=== PATIENT | female | born 1970 | race Caucasian/White ===

== ENCOUNTER 2019-12-12 04:35 | Inpatient (IN) | payer BC ==
[2019-12-12 13:20] LABS: ALT 16 U/L (4-34); AST 33 U/L (14-36); African American GFR (CKD) >90 (>60 ml/min/1.73 sqM); Albumin 4.2 g/dL (3.5-5.0); Alkaline Phosphatase 97 U/L (38-126); Anion Gap 12 mmol/L; Blood Urea Nitrogen 11 mg/dL (7-17); Carbon Dioxide 17 mmol/L (22-30); Chloride 95 mmol/L (98-107); Glucose 67 mg/dL (74-99); Non-African American GFR(CKD) >90 (>60 ml/min/1.73 sqM); Potassium 4.7 mmol/L (3.5-5.1); Sodium 124 mmol/L (137-145); Total Bilirubin 1.8 mg/dL (0.2-1.3); Total Protein 7.2 g/dL (6.3-8.2)
[2019-12-12 13:37] LABS: Basophils % (A) 0 %; Eosinophils # (A) 0.1 k/uL (0-0.7); Eosinophils % (A) 1 %; HCT 39.2 % (34.0-46.0); HGB 14.1 gm/dL (11.4-16.0); Lymphocytes # (A) 1.5 k/uL (1.0-4.8); Lymphocytes % (A) 25 %; MCHC 36.1 g/dL (31.0-37.0); Mean Platelet Volume 7.7; Monocytes # (A) 0.5 k/uL (0-1.0); Monocytes % (A) 8 %; Neutrophils # (A) 3.5 k/uL (1.3-7.7); Neutrophils % (A) 61 %; Platelet Count 164 k/uL (150-450); RBC 4.56 m/uL (3.80-5.40); RDW 12.5 % (11.5-15.5); WBC 5.8 k/uL (3.8-10.6)
[2019-12-12] MEDS ORDERED: NALOXONE 0.4 MG/ML 1 ML VIAL IV PRN (18:50)
[2019-12-12] MEDS: SODIUM CHLORIDE 0.9% 1,000 ML IV SCH ×2 (18:56→19:39)
[2019-12-12 19:56] LABS: African American GFR (CKD) >90 (>60 ml/min/1.73 sqM); Anion Gap 13 mmol/L; Blood Urea Nitrogen 13 mg/dL (7-17); Calcium 8.4 mg/dL (8.4-10.2); Carbon Dioxide 15 mmol/L (22-30); Chloride 94 mmol/L (98-107); Glucose 92 mg/dL (74-99); Non-African American GFR(CKD) >90 (>60 ml/min/1.73 sqM); Potassium 5.1 mmol/L (3.5-5.1); Sodium 122 mmol/L (137-145)
--- NOTE | 2019-12-12 20:51 | P.HPIM ---
History of Present Illness H&P Date: 12/12/19 Chief Complaint: Lightheadedness and weakness Patient is a 49-year-old female with a known history of breast cancer status post mastectomy and chemotherapy currently on Arimidex Was initially went to her primary care physician with the complaints of being generalized weakness and lightheadedness. Patient was orthostatically positive and was sent to hospital due to dehydration and volume depletion. Patient was seen initially seen at [facility] and was found to have sodium level 120 on admission. Patient was started on IV hydration and repeat sodium level came back at 119. Patient was transferred to [facility] for further management. Patient otherwise denied any complaints of nausea vomiting or abdominal pain or diarrhea. No dysuria or hematuria. No fever no chills. No chest pain or shortness of breath. Patient says that she has been drinking 150 ounces of water every day. Patient is currently not on any psychiatric medications. Review of Systems Constitutional: Patient denies any fever or chills . generalized weakness no weight loss. Abdomen: Patient denied nausea vomiting and diarrhea and abdominal pain. Cardiovascular: Patient denies any chest pain or short of breath no palpitations. Respiratory: patient denied any cough is from production. No shortness of breath Neurologic: Patient denied any numbness or tingling headache. Musculoskeletal: Patient denies any complaints of joint swelling or deformity. Skin: Negative Psychiatric: Negative Endocrine: No heat or cold intolerance. No recent weight gain. Genitourinary: No dysuria or hematuria. All other 14 point ROS negative except the above Past Medical History - Past Family History Father Family Medical History: Hypertension, Myocardial Infarction ([place]) Mother Family Medical History: Hypertension Medications and Allergies Home Medications Medication Instructions Recorded Confirmed Type Anastrozole [Arimidex] 1 mg PO DAILY 12/12/19 12/12/19 History Cetirizine HCl [Zyrtec] 10 mg PO DAILY 12/12/19 12/12/19 History Levothyroxine Sodium [Levoxyl] 100 mcg PO DAILY 12/12/19 12/12/19 History Montelukast [Singulair] 10 mg PO DAILY 12/12/19 12/12/19 History valACYclovir HCL [Valtrex] 2,000 mg PO Q12H PRN 12/12/19 12/12/19 History Allergies Allergy/AdvReac Type Severity Reaction Status Date / Time Penicillins Allergy Rash/Hives Verified 12/12/19 12:42 pollen extracts Allergy Verified 12/12/19 12:42 Physical Exam PHYSICAL EXAMINATION: Patient is lying in the bed comfortably, no acute distress, awake alert and oriented.. HEENT: Normocephalic. Neck is supple. Pupils reactive. Nostrils clear. Oral cavity is moist. Ears reveal no drainage. Neck reveals no JVD, carotid bruits, or thyromegaly. CHEST EXAMINATION: Trachea is central. Symmetrical expansion. Lung yeboah clear to auscultation and percussion. CARDIAC: Normal S1, S2 with no gallops. No murmurs ABDOMEN: Soft. Bowel sounds normal. No organomegaly. No abdominal bruits. Extremities: reveal no edema. No clubbing or cyanosis Neurologically awake, alert, oriented x3 with well-coordinated movements. No focal deficits noted Skin: No rash or skin lesions. Psychiatric: Coperative. Nonsuicidal Musculoskeletal: No joint swelling or deformity. Normal range of motion. Results CBC & Chem 7: 12/12/19 12:25 12/12/19 19:31 Thrombosis Risk Factor Assmnt - DVT/VTE Prophylaxis DVT/VTE Prophylaxis: Pharmacologic Prophylaxis ordered Assessment and Plan Assessment: Hyponatremia likely due to excessive free water intake. Hypoosmolar hyponatremia Metabolic acidosis History of breast cancer status post mastectomy and currently Arimidex. Hypothyroidism DVT prophylaxis with heparin subcu Plan: Patient will be continued on normal saline and serum, urine osmolality, urine protein and creatinine levels were ordered. Nephrology consultation. TSH is within normal limits. Repeat sodium level. Further recommendations based on clinical course. Time with Patient: Greater than 30
--- NOTE | 2019-12-12 22:16 | XR ---
EXAMINATION TYPE: XR chest 1V portable DATE OF EXAM: 12/12/2019 COMPARISON: NONE HISTORY: Sepsis TECHNIQUE: Single view FINDINGS: Heart and mediastinum are normal. Lungs are clear. Diaphragm is normal. Bony thorax appears normal. IMPRESSION: Normal chest.
[2019-12-12] MEDS: ACETAMINOPHEN TAB 325 MG TAB PO PRN (23:00)
[2019-12-12] MEDS: HEPARIN SODIUM,PORCINE 5,000 UNIT/ML 1 ML VIAL SQ SCH (23:02)
[2019-12-12 23:08] LABS: Appearance,Urine Clear (Clear); Bilirubin,Urine Negative (Negative); Blood,Urine Negative (Negative); Color,Urine Yellow; Glucose,Urine (UA) Negative (Negative); Ketones,Urine 2+ (Negative); Leukocyte Esterase,Urine Small (Negative); Mucus,Urine Rare /hpf; Nitrite,Urine Negative (Negative); Protein,Urine Negative (Negative); RBC,Urine 1 /hpf (0-5); Specific Gravity,Urine 1.014 (1.001-1.035); Urobilinogen,Urine <2.0 mg/dL (<2.0); WBC,Urine 7 /hpf (0-5)
[2019-12-12 23:16] LABS: Creatinine,Urine Random 69.3 mg/dL
[2019-12-13 05:10] LABS: Basophils # (A) 0.1 k/uL (0-0.2); Basophils % (A) 1 %; Eosinophils # (A) 0.1 k/uL (0-0.7); Eosinophils % (A) 1 %; HCT 40.6 % (34.0-46.0); HGB 13.6 gm/dL (11.4-16.0); Lymphocytes % (A) 33 %; MCHC 33.5 g/dL (31.0-37.0); MCV 86.8 fL (80.0-100.0); Mean Platelet Volume 6.8; Monocytes # (A) 0.4 k/uL (0-1.0); Monocytes % (A) 7 %; Neutrophils # (A) 3.3 k/uL (1.3-7.7); Neutrophils % (A) 54 %; Platelet Count 172 k/uL (150-450); RBC 4.67 m/uL (3.80-5.40); RDW 12.5 % (11.5-15.5); WBC 6.1 k/uL (3.8-10.6)
[2019-12-13 05:32] LABS: African American GFR (CKD) >90 (>60 ml/min/1.73 sqM); Anion Gap 10 mmol/L; Blood Urea Nitrogen 12 mg/dL (7-17); Calcium 8.8 mg/dL (8.4-10.2); Carbon Dioxide 17 mmol/L (22-30); Chloride 93 mmol/L (98-107); Glucose 82 mg/dL (74-99); Non-African American GFR(CKD) >90 (>60 ml/min/1.73 sqM); Potassium 4.9 mmol/L (3.5-5.1); Sodium 120 mmol/L (137-145)
[2019-12-13] MEDS: SODIUM CHLORIDE TAB 1 GM TAB PO SCH ×3 (06:49→20:29)
[2019-12-13] MEDS: LEVOTHYROXINE 100 MCG TAB PO SCH (06:49)
[2019-12-13] MEDS: PANTOPRAZOLE 40 MG TABLET PO SCH (07:03)
[2019-12-13] MEDS: MONTELUKAST 10 MG TAB PO SCH (09:20)
[2019-12-13] MEDS: ACETAMINOPHEN TAB 325 MG TAB PO PRN ×2 (09:20→19:29)
[2019-12-13] MEDS: HEPARIN SODIUM,PORCINE 5,000 UNIT/ML 1 ML VIAL SQ SCH ×3 (09:20→23:58)
[2019-12-13] MEDS: LORATADINE 10 MG TAB PO SCH (09:20)
[2019-12-13] MEDS: ANASTROZOLE 1 MG TAB PO SCH (11:50)
[2019-12-13 15:27] LABS: Sodium 121 mmol/L (137-145)
--- NOTE | 2019-12-13 18:23 | CONS ---
CONSULTATION REASON FOR CONSULT: Hyponatremia. HISTORY OF PRESENT ILLNESS: Patient is a 49-year-old female with a history of breast cancer about 12 years ago, status post bilateral mastectomy. The patient presented to the hospital with complaints of dizziness, weakness and low blood pressure. The patient states that she has had low blood pressure for some time and is aware of the times when it really decreases. She has had multiple readings of 80 mmHg systolic. The patient has had increased intake of salty foods. She goes through 3 jars of pickles over a week's time and has had a lot of salt cravings. The patient has, however, never been admitted before with hypotension or hyponatremia. She denies any prior history of hyponatremia. The patient initially went to [facility] where she was noted to have a low sodium and started on normal saline. Her serum sodium worsened on saline and therefore she was transferred to [place]. It dropped from 120 on initial admission to 119. The patient states that she has been drinking about 150 ounces of water every day and she was under the impression that increasing the water intake would help her blood pressure. She did state that she has increased her fluid intake over the past 4-5 months and did not have any labs done prior to this admission. The patient was not started on any new medications recently. She does have a history of hyperthyroidism status post radioactive iodine. Currently maintained on Levoxyl. No history of other connective tissue diseases or pigmentation issues or other malignancies. PAST MEDICAL HISTORY: Hyperthyroidism status post radioactive iodine, currently maintained on Synthroid. The patient has history of hypotension. HOME MEDICATIONS: Include Arimidex, Zyrtec, Levoxyl, Singulair, Valtrex. ALLERGIES: PENICILLIN causes rash and hives. POLLEN EXTRACT caused allergies. REVIEW OF SYSTEMS: As per HPI. Other systems negative. PHYSICAL EXAMINATION: Patient is comfortable, awake, alert, oriented x3, not in any acute distress. Blood pressure is 102/69. She had a T-max of 101.7, heart rate 99 per minute, patient is afebrile. Examination of the heart S1, S2. Examination of the lungs, bilateral breath sounds are heard. Abdomen is soft, nontender. Examination of lower extremities shows no significant edema. TRANSACTION MANAGER exam is grossly intact. LABS: Show sodium 120, potassium 4.9, chloride 93, CO2 17, BUN 10, serum creatinine 0.64. UA shows 2+ ketones, otherwise fairly negative with no blood or protein. Urine osmolality was 639 and random urine sodium was 183. ASSESSMENT: 1. Hyponatremia with low blood pressure but elevated urine osmolality and worsening of hyponatremia with normal saline which is suggestive off underlying SIADH. Clinically patient appears to be hypovolemic, however, the fact that she worsened with normal saline points towards SIADH, particularly with elevated urine osmolality and urine sodium. I will start her on sodium chloride tabs and patient is advised to restrict free water. Given the chronic hypotension prior to admission, I will check for random cortisol level as well and a TSH level. 2. Fever. Check urine cultures. The UA is not suggestive of a urinary tract infection. 3. Metabolic acidosis, nonanion gap, possibly related to the IV fluids in the form of sodium chloride. No ongoing diarrhea. 4. History of hyperthyroidism status post radioactive iodine. Currently maintained on Levoxyl. 5. History of breast cancer about 12 years ago, status post bilateral mastectomies with breast implants. PLAN: DC normal saline. Maintain patient on sodium chloride tabs. Check random cortisol level and TSH level. Repeat sodium in about 4 hours. Add oral sodium bicarb as well. Restrict plain water free water. Thank you for this consultation. Will continue to follow the patient with you during her hospitalization. MMODL / IJN: [id number] /
[2019-12-13] MEDS: SODIUM BICARBONATE TAB 650 MG TAB PO SCH (20:29)
[2019-12-13] MEDS: IBUPROFEN 400 MG TAB PO PRN (21:10)
[2019-12-14] MEDS: LEVOTHYROXINE 100 MCG TAB PO SCH (06:19)
[2019-12-14] MEDS: PANTOPRAZOLE 40 MG TABLET PO SCH (06:19)
[2019-12-14 07:26] LABS: African American GFR (CKD) >90 (>60 ml/min/1.73 sqM); Anion Gap 14 mmol/L; Blood Urea Nitrogen 13 mg/dL (7-17); Calcium 8.9 mg/dL (8.4-10.2); Carbon Dioxide 17 mmol/L (22-30); Chloride 93 mmol/L (98-107); Glucose 71 mg/dL (74-99); Non-African American GFR(CKD) >90 (>60 ml/min/1.73 sqM); Potassium 4.6 mmol/L (3.5-5.1); Sodium 124 mmol/L (137-145)
[2019-12-14] MEDS: ACETAMINOPHEN TAB 325 MG TAB PO PRN ×2 (08:43→18:55)
[2019-12-14] MEDS: ANASTROZOLE 1 MG TAB PO SCH (08:43)
[2019-12-14] MEDS: HEPARIN SODIUM,PORCINE 5,000 UNIT/ML 1 ML VIAL SQ SCH ×2 (08:43→15:21)
[2019-12-14] MEDS: SODIUM BICARBONATE TAB 650 MG TAB PO SCH ×2 (08:43→20:22)
[2019-12-14] MEDS: MONTELUKAST 10 MG TAB PO SCH (08:43)
[2019-12-14] MEDS: LORATADINE 10 MG TAB PO SCH (08:43)
[2019-12-14] MEDS: SODIUM CHLORIDE TAB 1 GM TAB PO SCH ×3 (08:43→20:23)
[2019-12-14] MEDS: ONDANSETRON 4 MG/2 ML VIAL IVP PRN ×3 (08:52→20:23)
--- NOTE | 2019-12-14 12:10 | PN ---
PROGRESS NOTE Patient is seen for followup for hyponatremia, hypotension, volume depletion. The patient is maintained on sodium chloride tabs. Her serum sodium has improved to 124 this morning. I did check a cortisol level and it was noted to be low at 4, and patient's clinical picture is suggestive of underlying adrenal insufficiency. I will add a Cortrosyn stimulation test to confirm and then patient can be started on steroids. She does see an soft iron inspector for hypothyroidism and she can follow up with Dr. Laura for the adrenals as well. Overall, patient states she is feeling better. PHYSICAL EXAMINATION: Blood pressure is 81/55, heart rate 106 per minute, she has a temp of 100 degrees Fahrenheit. Examination of the heart S1, S2. Examination of the lungs, decreased breath sounds at bases. Abdomen is soft, nontender. Examination of lower extremities shows no evidence of edema. NEPHROLOGY NURSE exam grossly intact. LAB: Show sodium 124, potassium 4.6, chloride 93, CO2 17, BUN 13, serum creatinine 0.65. ASSESSMENT: 1. Hyponatremia with elevated urine osmolality and elevated urine sodium with serum sodium worsening with normal saline, which is not clearly suggestive of hypovolemic hyponatremia, but rather SIADH. However, the patient's cortisol level is low and clinical picture with ongoing hypotension, hyponatremia and acidosis which has been chronic and is cortisol level of 4 to suggest adrenal insufficiency. I will order a Cortrosyn stimulation test. Continue with the sodium chloride tabs for now. 2. Metabolic acidosis non gap. Maintained on oral sodium bicarb. 3. History of hyperthyroidism status post radioactive iodine, maintained on Levoxyl. 4. History of breast cancer about 12 years ago, status post bilateral mastectomies with breast implants. PLAN: Continue sodium chloride tabs. Check Cortrosyn stimulation test and patient should follow up with Endocrinology as outpatient. We will start her on steroids if her a stimulation test shows evidence of adrenal insufficiency. MMODL / IJN: [id number] /
[2019-12-14] MEDS ORDERED: COSYNTROPIN 0.25 MG VIAL IVP ONE (15:45)
[2019-12-14] MEDS: IBUPROFEN 400 MG TAB PO PRN (20:22)
[2019-12-14] MEDS ORDERED: MELATONIN 3 MG TABLET PO PRN (21:05)
[2019-12-15] MEDS: HEPARIN SODIUM,PORCINE 5,000 UNIT/ML 1 ML VIAL SQ SCH ×4 (00:27→23:01)
--- NOTE | 2019-12-15 01:56 | P.PN ---
Subjective Progress Note Date: 12/13/19 Principal diagnosis: Hyponatremia Patient is a 49-year-old female with a known history of breast cancer status post mastectomy and chemotherapy currently on Arimidex Was initially went to her primary care physician with the complaints of being generalized weakness and lightheadedness. Patient was orthostatically positive and was sent to hospital due to dehydration and volume depletion. Patient was seen initially seen at [facility] and was found to have sodium level 120 on admission. Patient was started on IV hydration and repeat sodium level came back at 119. Patient was transferred to [facility] for further management. Patient otherwise denied any complaints of nausea vomiting or abdominal pain or diarrhea. No dysuria or hematuria. No fever no chills. No chest pain or shortness of breath. Patient says that she has been drinking 150 ounces of water every day. Patient is currently not on any psychiatric medications. 12/13/2019 Patient is currently lying in the bed comfortably. No complaints of weakness or fatigue today. Sodium level did improve to 120. Serum vascularity 249. Urine electrolytes reviewed and possible SIADH was suspected. TSH within normal limits. Cortisol level was ordered. Nephrology is following. No complaints of chest pain or shortness of breath. No fever no chills. Patient is currently being continued on fluid restriction and follow-up sodium level tomorrow. Current medications reviewed. Objective - Vital Signs Vital signs: Vital Signs Temp 101.7 F H 12/13/19 08:57 Pulse 99 12/13/19 08:57 Resp 18 12/13/19 08:57 BP 102/69 12/13/19 08:57 Pulse Ox 98 12/13/19 08:57 Intake & Output 12/12/19 12/13/19 12/13/19 18:59 06:59 18:59 Intake Total 75 125 Output Total 400 500 300 Balance -325 -375 -300 Weight 62.2 kg 62.1 kg Intake: Intake, IV Titration 75 125 Amount Sodium Chloride 0.9% 1, 75 75 000 ml @ 75 mls/hr IV . [id number] DASHAWN Rx#:[id number] cefTRIAXone 1 gm In 50 Sodium Chloride 0.9% 50 ml @ 100 mls/hr IVPB Q24H DASHAWN Rx#:[id number] Output: Urine 400 500 300 Other: Voiding Method Toilet Toilet - Exam PHYSICAL EXAMINATION: Patient is lying in the bed comfortably, no acute distress, awake alert and oriented.. HEENT: Normocephalic. Neck is supple. Pupils reactive. Nostrils clear. Oral cavity is moist. Ears reveal no drainage. Neck reveals no JVD, carotid bruits, or thyromegaly. CHEST EXAMINATION: Trachea is central. Symmetrical expansion. Lung yeboah clear to auscultation and percussion. CARDIAC: Normal S1, S2 with no gallops. No murmurs ABDOMEN: Soft. Bowel sounds normal. No organomegaly. No abdominal bruits. Extremities: reveal no edema. No clubbing or cyanosis Neurologically awake, alert, oriented x3 with well-coordinated movements. No focal deficits noted Skin: No rash or skin lesions. Psychiatric: Coperative. Nonsuicidal Musculoskeletal: No joint swelling or deformity. Normal range of motion. - Labs CBC & Chem 7: 12/13/19 04:58 12/14/19 06:30 Labs: Abnormal Lab Results - Last 24 Hours (Table) 12/12/19 12/12/19 12/12/19 Range/Units 12:25 19:31 22:45 Sodium 124 L 122 L (137-145) mmol/L Chloride 95 L 94 L (98-107) mmol/L Carbon Dioxide 17 L 15 L (22-30) mmol/L Glucose 67 L (74-99) mg/dL Osmolality (280-301) mosm/kg Total Bilirubin 1.8 H (0.2-1.3) mg/dL Urine Ketones 2+ H (Negative) Ur Leukocyte Esterase Small H (Negative) Urine WBC 7 H (0-5) /hpf Urine Mucus Rare H (None) /hpf 12/13/19 Range/Units 04:58 Sodium 120 L (137-145) mmol/L Chloride 93 L (98-107) mmol/L Carbon Dioxide 17 L (22-30) mmol/L Glucose (74-99) mg/dL Osmolality 249 L* (280-301) mosm/kg Total Bilirubin (0.2-1.3) mg/dL Urine Ketones (Negative) Ur Leukocyte Esterase (Negative) Urine WBC (0-5) /hpf Urine Mucus (None) /hpf Assessment and Plan Assessment: Hyponatremia likely due to excessive free water intake.Possible SIADH. Hypoosmolar hyponatremia Metabolic acidosis History of breast cancer status post mastectomy and currently Arimidex. Hypothyroidism DVT prophylaxis with heparin subcu Plan: Patient will be continued on normal saline and serum, urine osmolality, urine protein and creatinine levels reviewed. Nephrology is folowing. TSH is within normal limits. Further recommendations based on clinical course. Time with Patient: Greater than 30
--- NOTE | 2019-12-15 02:03 | P.PN ---
Subjective Progress Note Date: 12/14/19 Principal diagnosis: Hyponatremia Patient is a 49-year-old female with a known history of breast cancer status post mastectomy and chemotherapy currently on Arimidex Was initially went to her primary care physician with the complaints of being generalized weakness and lightheadedness. Patient was orthostatically positive and was sent to hospital due to dehydration and volume depletion. Patient was seen initially seen at [facility] and was found to have sodium level 120 on admission. Patient was started on IV hydration and repeat sodium level came back at 119. Patient was transferred to [facility] for further management. Patient otherwise denied any complaints of nausea vomiting or abdominal pain or diarrhea. No dysuria or hematuria. No fever no chills. No chest pain or shortness of breath. Patient says that she has been drinking 150 ounces of water every day. Patient is currently not on any psychiatric medications. 12/13/2019 Patient is currently lying in the bed comfortably. No complaints of weakness or fatigue today. Sodium level did improve to 120. Serum vascularity 249. Urine electrolytes reviewed and possible SIADH was suspected. TSH within normal limits. Cortisol level was ordered. Nephrology is following. No complaints of chest pain or shortness of breath. No fever no chills. Patient is currently being continued on fluid restriction and follow-up sodium level tomorrow. 12/14/2019 Patient denied any complaints of chest pain or shortness of. Generalized weakness and fatigue is much improved. Sodium level improved to 124 with fluid restriction. Cortisol level is 4. Nephrology is following and ordered cosyntropin test to rule out adrenal insufficiency. Otherwise patient is tolerating oral diet. No nausea vomiting or diarrhea or abdominal pain. Current medications reviewed. Objective - Vital Signs Vital signs: Vital Signs Temp 101.8 F H 12/14/19 19:45 Pulse 108 H 12/14/19 19:45 Resp 18 12/14/19 19:45 BP 97/63 12/14/19 19:45 Pulse Ox 98 12/14/19 19:45 Intake & Output 12/14/19 12/14/19 12/15/19 06:59 18:59 06:59 Intake Total 797 Output Total 525 Balance 272 Weight 59.3 kg Intake: Oral 797 Output: Urine 525 Other: Voiding Method Toilet Toilet - Exam PHYSICAL EXAMINATION: Patient is lying in the bed comfortably, no acute distress, awake alert and oriented.. HEENT: Normocephalic. Neck is supple. Pupils reactive. Nostrils clear. Oral cavity is moist. Ears reveal no drainage. Neck reveals no JVD, carotid bruits, or thyromegaly. CHEST EXAMINATION: Trachea is central. Symmetrical expansion. Lung yeboah clear to auscultation and percussion. CARDIAC: Normal S1, S2 with no gallops. No murmurs ABDOMEN: Soft. Bowel sounds normal. No organomegaly. No abdominal bruits. Extremities: reveal no edema. No clubbing or cyanosis Neurologically awake, alert, oriented x3 with well-coordinated movements. No focal deficits noted Skin: No rash or skin lesions. Psychiatric: Coperative. Nonsuicidal Musculoskeletal: No joint swelling or deformity. Normal range of motion. - Labs CBC & Chem 7: 12/13/19 04:58 12/14/19 06:30 Labs: Abnormal Lab Results - Last 24 Hours (Table) 12/14/19 12/14/19 Range/Units 06:30 10:35 Sodium 124 L (137-145) mmol/L Chloride 93 L (98-107) mmol/L Carbon Dioxide 17 L (22-30) mmol/L Glucose 71 L (74-99) mg/dL Plasma Lactic Acid Heladio 0.6 L (0.7-2.0) mmol/L Microbiology - Last 24 Hours (Table) 12/12/19 22:45 Urine Culture - Final Urine,Clean Catch 12/12/19 22:35 Blood Culture - Preliminary Blood No Growth after 24 hours 12/12/19 22:31 Blood Culture - Preliminary Blood No Growth after 24 hours Assessment and Plan Assessment: Hyponatremia likely due to excessive free water intake.Possible SIADH. r/o Adrenal insufficiency. Hypoosmolar hyponatremia Metabolic acidosis History of breast cancer status post mastectomy and currently Arimidex. Hypothyroidism DVT prophylaxis with heparin subcu Plan: Patient will be continued on normal saline and serum, urine osmolality, urine protein and creatinine levels reviewed. Nephrology is folowing. TSH is within normal limits. Further recommendations based on clinical course.
[2019-12-15] MEDS: LEVOTHYROXINE 100 MCG TAB PO SCH (06:32)
[2019-12-15] MEDS: PANTOPRAZOLE 40 MG TABLET PO SCH (06:32)
[2019-12-15 07:11] LABS: Basophils % (A) 1 %; Eosinophils % (A) 1 %; HCT 37.2 % (34.0-46.0); HGB 12.9 gm/dL (11.4-16.0); Lymphocytes # (A) 1.7 k/uL (1.0-4.8); Lymphocytes % (A) 47 %; MCH 29.7 pg (25.0-35.0); MCHC 34.7 g/dL (31.0-37.0); MCV 85.5 fL (80.0-100.0); Mean Platelet Volume 7.2; Monocytes # (A) 0.3 k/uL (0-1.0); Monocytes % (A) 8 %; Neutrophils # (A) 1.5 k/uL (1.3-7.7); Neutrophils % (A) 40 %; Platelet Count 196 k/uL (150-450); RBC 4.35 m/uL (3.80-5.40); RDW 12.7 % (11.5-15.5); WBC 3.6 k/uL (3.8-10.6)
[2019-12-15 07:12] LABS: Calcium 8.6 mg/dL (8.4-10.2); Magnesium 1.7 mg/dL (1.6-2.3); Potassium 4.7 mmol/L (3.5-5.1)
[2019-12-15] MEDS: ANASTROZOLE 1 MG TAB PO SCH (09:40)
[2019-12-15] MEDS: MONTELUKAST 10 MG TAB PO SCH (09:41)
[2019-12-15] MEDS: SODIUM BICARBONATE TAB 650 MG TAB PO SCH ×2 (09:41→23:02)
[2019-12-15] MEDS: LORATADINE 10 MG TAB PO SCH (09:41)
[2019-12-15] MEDS: SODIUM CHLORIDE TAB 1 GM TAB PO SCH ×3 (09:41→23:03)
[2019-12-15] MEDS: ONDANSETRON 4 MG/2 ML VIAL IVP PRN ×3 (09:47→23:01)
--- NOTE | 2019-12-15 10:40 | P.PN ---
Subjective from records: Patient is a 49-year-old female with a known history of breast cancer status post mastectomy and chemotherapy currently on Arimidex Was initially went to her primary care physician with the complaints of being generalized weakness and lightheadedness. Patient was orthostatically positive and was sent to hospital due to dehydration and volume depletion. Patient was seen initially seen at [facility] and was found to have sodium level 120 on admission. Patient was started on IV hydration and repeat sodium level came back at 119. Patient was transferred to [facility] for further management. Patient otherwise denied any complaints of nausea vomiting or abdominal pain or diarrhea. No dysuria or hematuria. No fever no chills. No chest pain or shortness of breath. Patient says that she has been drinking 150 ounces of water every day. Patient is currently not on any psychiatric medications. 12/13/2019 Patient is currently lying in the bed comfortably. No complaints of weakness or fatigue today. Sodium level did improve to 120. Serum vascularity 249. Urine electrolytes reviewed and possible SIADH was suspected. TSH within normal limits. Cortisol level was ordered. Nephrology is following. No complaints of chest pain or shortness of breath. No fever no chills. Patient is currently being continued on fluid restriction and follow-up sodium level tomorrow. 12/14/2019 Patient denied any complaints of chest pain or shortness of. Generalized weakness and fatigue is much improved. Sodium level improved to 124 with fluid restriction. Cortisol level is 4. Nephrology is following and ordered cosyntropin test to rule out adrenal insufficiency. Otherwise patient is tolerating oral diet. No nausea vomiting or diarrhea or abdominal pain. subjective 12/15/2019 Patient is a pleasant 49 years old female, who presents in 12/11 for lightheadedness. Found to have hyponatremia thought it is due to SIADH more than hypovolemia patient also was hypotensive, acidotic with low cortisol level suspicious for adrenal insufficiency add train crew member recommended Cortrosyn test which was done and the result is still pending. sodium today is a stable at 124, CBC is unremarkable. Patient also is on sodium tablets. patient also notices spiking fever since admission of 103, yesterday T-max was 102.8. She was placed on Rocephin empirically with no source of infection. Patient denies chest pain or dyspnea, no coughing, no change in urine or bowel habits.argon to consult infectious disease service. Review of systems CONSTITUTIONAL: No fever, no malaise, no fatigue. HEENT: No recent visual problems or hearing problems. Denied any sore throat. CARDIOVASCULAR: No orthopnea, PND, no palpitations, no syncope. PULMONARY: No shortness of breath, no cough, no hemoptysis. GASTROINTESTINAL: No diarrhea, no nausea, no vomiting, no abdominal pain. Normoactive bowel sounds. NEUROLOGICAL: No headaches, no weakness, no numbness. HEMATOLOGICAL: Denies any bleeding or petechiae. GENITOURINARY: Denies any burning micturition, frequency, or urgency. MUSCULOSKELETAL/RHEUMATOLOGICAL: Denies any joint pain, swelling, or any muscle pain. ENDOCRINE: Denies any polyuria or polydipsia. Active Medications Generic Name Dose Route Start Last Admin Trade Name Freq PRN Reason Stop Dose Admin Acetaminophen 650 mg 12/12/19 21:55 12/14/19 18:55 Tylenol Tab PO 650 mg Q4HR PRN Administration Fever and/ or Pain Anastrozole 1 mg 12/13/19 09:00 12/15/19 09:40 Arimidex PO 1 mg DAILY DASHAWN Administration Heparin Sodium (Porcine) 5,000 unit 12/13/19 00:00 12/15/19 09:40 Heparin SQ 5,000 unit Q8HR DASHAWN Administration Ceftriaxone Sodium 1 gm/ 50 mls @ 100 mls/hr 12/12/19 22:00 12/14/19 20:23 Sodium Chloride IVPB 100 mls/hr Q24H DASHAWN Administration Levothyroxine Sodium 100 mcg 12/13/19 06:30 12/15/19 06:32 Synthroid PO 100 mcg DAILY@0630 DASHAWN Administration Loratadine 10 mg 12/13/19 09:00 12/15/19 09:41 Claritin PO 10 mg DAILY DASHAWN Administration Melatonin 3 mg 12/14/19 21:05 Melatonin PO HS PRN Insomnia Montelukast Sodium 10 mg 12/13/19 09:00 12/15/19 09:41 Singulair PO 10 mg DAILY DASHAWN Administration Naloxone HCl 0.2 mg 12/12/19 18:50 Narcan IV Q2M PRN Opioid Reversal Ondansetron HCl 4 mg 12/12/19 21:56 12/15/19 09:47 Zofran IVP 4 mg Q6HR PRN Administration Nausea And Vomiting Pantoprazole Sodium 40 mg 12/13/19 07:30 12/15/19 06:32 Protonix PO 40 mg AC-BRKFST DASHAWN Administration Sodium Bicarbonate 650 mg 12/13/19 21:00 12/15/19 09:41 Sodium Bicarbonate Tab PO 650 mg BID DASHAWN Administration Sodium Chloride 1 gm 12/13/19 06:26 12/15/19 09:41 Sodium Chloride Tab PO 1 gm TID DASHAWN Administration Objective - Vital Signs Vital signs: Vital Signs Temp 98.6 F 12/15/19 03:15 Pulse 60 12/15/19 03:15 Resp 16 12/15/19 03:15 BP 131/74 12/15/19 03:15 Pulse Ox 96 12/15/19 03:15 Intake & Output 12/14/19 12/15/19 12/15/19 18:59 06:59 18:59 Intake Total 797 Output Total 525 Balance 272 Weight 60.3 kg Intake: Oral 797 Output: Urine 525 Other: Voiding Method Toilet # Voids 1 - Exam GENERAL: The patient is alert and oriented x3, not in any acute distress. Well developed, well nourished. HEENT: Pupils are round and equally reacting to light. EOMI. No scleral icterus. No conjunctival pallor. Normocephalic, atraumatic. No pharyngeal erythema. No thyromegaly. CARDIOVASCULAR: S1 and S2 present. No murmurs, rubs, or gallops. PULMONARY: Chest is clear to auscultation, no wheezing or crackles. ABDOMEN: Soft, nontender, nondistended, normoactive bowel sounds. No palpable organomegaly. MUSCULOSKELETAL: No joint swelling or deformity. EXTREMITIES: No cyanosis, clubbing, or pedal edema. NEUROLOGICAL: Gross neurological examination did not reveal any focal deficits. SKIN: No rashes. no petechiae. - Labs CBC & Chem 7: 12/15/19 06:18 12/15/19 06:18 Labs: Abnormal Lab Results - Last 24 Hours (Table) 12/14/19 12/15/19 12/15/19 Range/Units 10:35 06:18 06:18 WBC 3.6 L (3.8-10.6) k/uL Sodium 124 L (137-145) mmol/L Chloride 93 L (98-107) mmol/L Carbon Dioxide 17 L (22-30) mmol/L Plasma Lactic Acid Heladio 0.6 L (0.7-2.0) mmol/L Microbiology - Last 24 Hours (Table) 12/12/19 22:35 Blood Culture - Preliminary Blood No Growth after 48 hours 12/12/19 22:31 Blood Culture - Preliminary Blood No Growth after 48 hours 12/13/19 21:14 Blood Culture - Preliminary Blood No Growth after 24 hours 12/13/19 21:18 Blood Culture - Preliminary Blood No Growth after 24 hours 12/12/19 22:45 Urine Culture - Final Urine,Clean Catch Assessment and Plan Assessment: diagnoses: Hyponatremia likely due to SIADH. fever of unknown origin Metabolic acidosis History of breast cancer status post mastectomy and currently Arimidex. Hypothyroidism Plan: this is a pleasant 49 years old female who presents with fever and hyponatremia. Nephrology on the case and she is currently on sodium tablets and monitor sodium level. Patient is been worked up for adrenal insufficiency. Also consult infectious disease for fever. Continue with antibiotics as per ID team and follow-up culture results. Labs and medication were reviewed.. Continue same treatment. Continue with symptomatic treatment. Resume home medication. Monitor lytes and vitals. DVT and GI prophylaxis. Further recommendations of the clinical course of the patient DVT prophylaxis: Subcutaneous heparin GI Prophylaxis: Ppi Prognosis is guarded
--- NOTE | 2019-12-15 12:05 | P.PN ---
Subjective Patient is seen in follow-up for electrolyte imbalance. Sodium level stable at 124. She remains acidotic. No significant response in cortisol level post cosyntropin stimulation. No vomiting or diarrhea. Oral intake is gradually improving. Feels nauseous. She wants to go home. Vital signs are stable. General: The patient appeared well nourished and normally developed. HEENT: Head exam is unremarkable. Neck is without jugular venous distension. LUNGS: Lungs are clear to auscultation and percussion. Breath sounds decreased. HEART: Rate and Rhythm are regular. ABDOMEN: soft, nontender. EXTREMITITES: No clubbing, cyanosis, or edema. Objective - Vital Signs Vital signs: Vital Signs Temp 98.0 F 12/15/19 08:00 Pulse 80 12/15/19 08:00 Resp 18 12/15/19 08:00 BP 97/53 12/15/19 08:00 Pulse Ox 99 12/15/19 08:00 Intake & Output 12/14/19 12/15/19 12/15/19 18:59 06:59 18:59 Intake Total 797 Output Total 525 Balance 272 Weight 60.3 kg Intake: Oral 797 Output: Urine 525 Other: Voiding Method Toilet Toilet # Voids 1 - Labs CBC & Chem 7: 12/15/19 06:18 12/15/19 06:18 Labs: Abnormal Lab Results - Last 24 Hours (Table) 12/15/19 12/15/19 Range/Units 06:18 06:18 WBC 3.6 L (3.8-10.6) k/uL Sodium 124 L (137-145) mmol/L Chloride 93 L (98-107) mmol/L Carbon Dioxide 17 L (22-30) mmol/L Microbiology - Last 24 Hours (Table) 12/12/19 22:35 Blood Culture - Preliminary Blood No Growth after 48 hours 12/12/19 22:31 Blood Culture - Preliminary Blood No Growth after 48 hours 12/13/19 21:14 Blood Culture - Preliminary Blood No Growth after 24 hours 12/13/19 21:18 Blood Culture - Preliminary Blood No Growth after 24 hours 12/12/19 22:45 Urine Culture - Final Urine,Clean Catch Assessment and Plan Plan: assessment: 1. Hyponatremia, currently euvolemic. There is concern for adrenal insufficiency due to lack of response in cortisol post-cosyntropin stimulation. Blood pressure also on the lower side and remains acidotic which are also suggestive of adrenal insufficiency. 2. Metabolic acidosis. Non-anion gap. No diarrhea. Concern for adrenal insufficiency. 3. Hypothyroidism maintained on levothyroxine. 4. History of breast cancer status post bilateral mastectomies. Plan: Maintain fluid restriction. Encouraged oral intake, particularly protein. Add ensure 3 times daily. Maintain sodium chloride tablets. Add Cortef. Increase dose of oral sodium bicarbonate. Repeat electrolytes in the morning. She is to follow-up with her fast brim pouncer upon discharge.
[2019-12-15] MEDS: HYDROCORTISONE 10 MG TAB PO SCH ×2 (13:30→23:03)
[2019-12-15] MEDS ORDERED: IOPAMIDOL CONTRAST (ORAL USE) VIAL PO PRN (15:54)
--- NOTE | 2019-12-15 18:51 | CT ---
EXAMINATION TYPE: CT abdomen pelvis w con DATE OF EXAM: 12/15/2019 COMPARISON: None HISTORY: Fever, jaja's disease. CT DLP: 602.5 mGycm Automated exposure control for dose reduction was used. CONTRAST: Performed with IV Contrast, patient injected with 100 mL of Isovue 300. Multiple axial sections were obtained from the diaphragm to the floor the pelvis with oral and intrav enous contrast. Lung bases are clear. There is no pleural effusion. Heart size is normal. There is no pericardial eff usion. There are clips from cholecystectomy. Liver spleen stomach pancreas appear normal. Bile ducts are not dilated. There is no adrenal mass. Kidneys show satisfactory contrast opacification. There is no hydronephrosi s. Ureters are not dilated. Bladder distends smoothly. There is no free fluid in the pelvis. There is no inguinal hernia. There is no evidence of pelvic mass. Delayed images show normal renal excretion. There is no mesenteric edema. There is no ascites or free air. There is no sign of a bowel obstruction. The cecum is low in the pelvis. Appendix is not defini tely seen. There is no sign of thickened appendix. Lumbar vertebra have normal spacing and alignment. The bony pelvis is intact. There is no compression fracture. IMPRESSION: Negative CT scan abdomen and pelvis. No adrenal mass seen.
[2019-12-16] MEDS: LEVOTHYROXINE 100 MCG TAB PO SCH (06:20)
[2019-12-16] MEDS: PANTOPRAZOLE 40 MG TABLET PO SCH (06:20)
[2019-12-16 07:42] LABS: African American GFR (CKD) >90 (>60 ml/min/1.73 sqM); Anion Gap 13 mmol/L; Blood Urea Nitrogen 16 mg/dL (7-17); C Reactive Protein 63.2 mg/L (<10.0); Calcium 9.2 mg/dL (8.4-10.2); Carbon Dioxide 21 mmol/L (22-30); Chloride 93 mmol/L (98-107); Glucose 104 mg/dL (74-99); Magnesium 1.9 mg/dL (1.6-2.3); Non-African American GFR(CKD) >90 (>60 ml/min/1.73 sqM); Potassium 4.8 mmol/L (3.5-5.1); Sodium 127 mmol/L (137-145)
[2019-12-16 08:07] LABS: Basophils % (A) 1 %; Eosinophils % (A) 1 %; HCT 38.9 % (34.0-46.0); HGB 13.7 gm/dL (11.4-16.0); Lymphocytes # (A) 1.4 k/uL (1.0-4.8); Lymphocytes % (A) 58 %; MCH 30.2 pg (25.0-35.0); MCHC 35.1 g/dL (31.0-37.0); MCV 86.1 fL (80.0-100.0); Monocytes # (A) 0.2 k/uL (0-1.0); Monocytes % (A) 7 %; Neutrophils # (A) 0.7 k/uL (1.3-7.7); Neutrophils % (A) 31 %; Platelet Count 220 k/uL (150-450); RBC 4.52 m/uL (3.80-5.40); RDW 12.7 % (11.5-15.5); WBC 2.4 k/uL (3.8-10.6)
--- NOTE | 2019-12-16 09:24 | P.PN ---
Subjective Patient is seen in follow-up for electrolyte imbalance. Sodium level up to 127 today. Acidosis improved. No significant response in cortisol level post cosyntropin stimulation. Started on Cortef on December 14. No vomiting or diarrhea. Oral intake is gradually improving. No nausea or vomiting. Eager to go home. Vital signs are stable. General: The patient appeared well nourished and normally developed. HEENT: Head exam is unremarkable. Neck is without jugular venous distension. LUNGS: Lungs are clear to auscultation and percussion. Breath sounds decreased. HEART: Rate and Rhythm are regular. ABDOMEN: soft, nontender. EXTREMITITES: No clubbing, cyanosis, or edema. Objective - Vital Signs Vital signs: Vital Signs Temp 98.3 F 12/16/19 04:00 Pulse 81 12/16/19 04:00 Resp 16 12/16/19 04:00 BP 87/63 12/16/19 04:00 Pulse Ox 97 12/16/19 04:00 Intake & Output 12/15/19 12/16/19 12/16/19 18:59 06:59 18:59 Intake Total 240 10 0 Output Total 1500 Balance 240 -1490 0 Weight 58.7 kg Intake: IV 10 Invasive Line 1 10 Oral 240 0 Output: Urine 1500 Other: Voiding Method Toilet Toilet # Voids 1 1 - Labs CBC & Chem 7: 12/16/19 07:05 12/16/19 07:05 Labs: Abnormal Lab Results - Last 24 Hours (Table) 12/15/19 12/16/19 12/16/19 Range/Units 06:18 07:05 07:05 WBC 2.4 L (3.8-10.6) k/uL Neutrophils # 0.7 L (1.3-7.7) k/uL Sodium 127 L (137-145) mmol/L Chloride 93 L (98-107) mmol/L Carbon Dioxide 21 L (22-30) mmol/L Glucose 104 H (74-99) mg/dL C-Reactive Protein 63.2 H (<10.0) mg/L Procalcitonin 0.39 H (0.02-0.09) ng/mL Microbiology - Last 24 Hours (Table) 12/12/19 22:35 Blood Culture - Preliminary Blood No Growth after 72 hours 12/12/19 22:31 Blood Culture - Preliminary Blood No Growth after 72 hours 12/13/19 21:18 Blood Culture - Preliminary Blood No Growth after 48 hours 12/13/19 21:14 Blood Culture - Preliminary Blood No Growth after 48 hours Assessment and Plan Plan: assessment: 1. Hyponatremia, currently euvolemic. Improved. There is concern for adrenal insufficiency due to lack of response in cortisol post-cosyntropin stimulation. Blood pressure also on the lower side and remains acidotic which are also suggestive of adrenal insufficiency. Started on Cortef December 14. Also on sodium chloride tablets. 2. Metabolic acidosis. Non-anion gap. No diarrhea. Concern for adrenal insufficiency. Maintained on oral sodium bicarbonate. Better. 3. Hypothyroidism maintained on levothyroxine. 4. History of breast cancer status post bilateral mastectomies. Plan: Maintain fluid restriction. Encouraged oral intake, particularly protein. Maintain ensure 3 times daily. Maintain sodium chloride tablets. Maintain Cortef. Anticipate discharge soon. Follow up outpatient in 1-2 weeks. Repeat BMP and magnesium level 2-3 days postdischarge. She also has an appointment scheduled with endocrinology within the next 2 weeks.
[2019-12-16 09:57] VITALS: TEMP 97.6
[2019-12-16] MEDS: MONTELUKAST 10 MG TAB PO SCH (10:09)
[2019-12-16] MEDS: LORATADINE 10 MG TAB PO SCH (10:09)
[2019-12-16] MEDS: HYDROCORTISONE 10 MG TAB PO SCH (10:10)
[2019-12-16] MEDS: SODIUM CHLORIDE TAB 1 GM TAB PO SCH (10:10)
[2019-12-16] MEDS: SODIUM BICARBONATE TAB 650 MG TAB PO SCH (10:10)
[2019-12-16] MEDS: ONDANSETRON 4 MG/2 ML VIAL IVP PRN (10:11)
[2019-12-16] MEDS: ANASTROZOLE 1 MG TAB PO SCH (10:11)
[2019-12-16] MEDS: HEPARIN SODIUM,PORCINE 5,000 UNIT/ML 1 ML VIAL SQ SCH (10:11)
[2019-12-16 13:45] VITALS: BP 105/74; PULSE 85; RESP 18
--- NOTE | 2019-12-16 15:35 | PN ---
PROGRESS NOTE DATE OF SERVICE: 12/16/2019 REASON FOR FOLLOWUP: Fever. INTERVAL HISTORY: The patient is currently afebrile. The patient is feeling better, breathing comfortably. The patient denies having any chest pain or shortness of breath or cough. No nausea or vomiting. No abdominal pain or diarrhea. PHYSICAL EXAMINATION: Blood pressure 105/74 with a pulse of 85, temperature 98.3. She is 99% on room air. General description is a middle-aged female up in the bed in no distress. RESPIRATORY SYSTEM: Unlabored breathing with decreased breath sounds at the base. No wheeze. HEART: S1, S2. Regular rate and rhythm. ABDOMEN: Soft. No tenderness. LABS: Hemoglobin 13.7, white count 2.4, BUN of 16, creatinine 0.74. Blood culture has been negative. Urine is negative. CT of abdomen and pelvis was negative. Chest x-ray was negative. DIAGNOSTIC IMPRESSION AND PLAN: Patient with a fever, currently with no obvious localizing focus of infection, with a negative chest x-ray, CT of abdomen and pelvis and UA. Overall resolution of the fever with Rocephin. Recommend finishing therapy with oral Ceftin 500 mg twice a day for about a week and close outpatient followup. Questions and concerns were answered. MMODL / IJN: [id number] /
--- NOTE | 2019-12-25 07:39 | P.DS ---
Providers Date of admission: 12/12/19 07:38 Attending physician: Amanda Mosquera Consults: 12/12/19 10:59 Consult Physician Routine Consulting Provider: Jed Bess Consult Reason/Comments: Hyponatremia Do you want consulting provider notified?: Yes Placement Type Exists?: Yes 12/15/19 10:33 Consult Physician Routine Consulting Provider: Bill Stoner Consult Reason/Comments: fever of unknown origin Do you want consulting provider notified?: Yes Primary care physician: HOLLY Polanco Hospital Course: diagnoses: Hyponatremia likely due to SIADH. fever of unknown origin Metabolic acidosis History of breast cancer status post mastectomy and currently Arimidex. Hypothyroidism Hospital course: Patient is a pleasant 49 years old female, with a known history of breast cancer status post mastectomy and chemotherapy currently on Arimidex, who presents in 12/11 for lightheadedness. Found to have hyponatremia thought it is due to SIADH more than hypovolemia patient also was hypotensive, acidotic with low cortisol level suspicious for adrenal insufficiency and gastroenterology nurse recommended Cortrosyn test , and patient was started on Cortef 5 mg twice daily Patient also was treated with fluid restriction and sodium tablets, gastroenterology nurse follow the patient closely, her sodium improved prior to discharge from [address] of the abdomen and pelvis showing no adrenal mass Patient's symptoms improved significantly, no lightheadedness, no other symptoms, no chest pain or dyspnea, no abdominal pain, no nausea vomiting. Infectious disease also evaluated the patient and she was having fever, on admission was-103, she was treated with Rocephin, no more fever over the last 2 days. No source of infection is found with negative chest x-ray, CT of the abdomen and UA. No diarrhea or rash. Patient was cleared for discharge by gastroenterology nurse and infectious disease Problems and management plan were discussed with the patient and he verbalized understanding and acceptance Patient was found stable and can be discharged home however he needs follow-up as an outpatient. Patient was instructed to follow up with PCP within one week and patient agrees with her PCP Dr. Melendez on 12/18, shelter case manager Dr. Laura on 12/24. And Dr. Bess on 12/31 and states she will follow up Gen: patient is a AAOx3, no distress CVS: S1-S2, RRR, no murmur Lungs: B/L CTA, no wheezing Abdomen: soft, no distention, no tenderness, positive bowel sounds Extremity: no leg edema or induration Time spent more than 35 minutes Plan - Discharge Summary Discharge Rx Participant: Yes New Discharge Prescriptions: New Cefuroxime Axetil [Ceftin] 500 mg PO BID 7 Days #14 tab Hydrocortisone [Cortef] 5 mg PO BID #120 tab Pantoprazole [Protonix] 40 mg PO AC-BRKFST #14 tablet. Sodium Bicarbonate Tab 1,300 mg PO BID #120 tab Sodium Chloride Tab 1 gm PO TID #60 tab Acetaminophen Tab [Tylenol] 650 mg PO Q4HR PRN tab PRN Reason: Fever And/ Or Pain Ondansetron HCl [Zofran] 4 mg PO Q8H PRN 20 Days #60 tab PRN Reason: Nausea And Vomiting Continue Montelukast [Singulair] 10 mg PO DAILY Levothyroxine Sodium [Levoxyl] 100 mcg PO DAILY Cetirizine HCl [Zyrtec] 10 mg PO DAILY Anastrozole [Arimidex] 1 mg PO DAILY valACYclovir HCL [Valtrex] 2,000 mg PO Q12H PRN PRN Reason: Cold Sores Discharge Medication List Anastrozole [Arimidex] 1 mg PO DAILY 12/12/19 [History] Cetirizine HCl [Zyrtec] 10 mg PO DAILY 12/12/19 [History] Levothyroxine Sodium [Levoxyl] 100 mcg PO DAILY 12/12/19 [History] Montelukast [Singulair] 10 mg PO DAILY 12/12/19 [History] valACYclovir HCL [Valtrex] 2,000 mg PO Q12H PRN 12/12/19 [History] Acetaminophen Tab [Tylenol] 650 mg PO Q4HR PRN tab 12/16/19 [Rx] Cefuroxime Axetil [Ceftin] 500 mg PO BID 7 Days #14 tab 12/16/19 [Rx] Hydrocortisone [Cortef] 5 mg PO BID #120 tab 12/16/19 [Rx] Ondansetron HCl [Zofran] 4 mg PO Q8H PRN 20 Days #60 tab 12/16/19 [Rx] Pantoprazole [Protonix] 40 mg PO AC-BRKFST #14 tablet. 06/23/20 [Rx] Sodium Bicarbonate Tab 1,300 mg PO BID #120 tab 12/16/19 [Rx] Sodium Chloride Tab 1 gm PO TID #60 tab 12/16/19 [Rx] Follow up Appointment(s)/Referral(s): Barb Cabrera NPC [Primary Care Provider] - 12/19/19 (you Made the appointment, you have the time of the appointment otherwise,go at 8:00 in the morning) Russell Laura MD [REFERRING] - 12/25/19 (shelter case manager for hyponatremia you made this appointment, please make sure to follow-up) Jed Bess DO [STAFF PHYSICIAN] - 01/01/20 9:40 am Patient Instructions/Handouts: Hyponatremia (DC) Activity/Diet/Wound Care/Special Instructions: heart healthy diet activity is limited till you see your doctor Discharge Disposition: HOME SELF-CARE
== END 2019-12-16 15:20 | disposition home or self-care (01) | DRG 644 ==
LOC: 2SICU 07:38 → 3SCARD 12-13 07:35
PROVIDERS: ADMIT Hospitalist; ATTEND Hospitalist
DX: E27.40 Unspecified adrenocortical insufficiency (principal); E22.2 Syndrome of inappropriate secretion of antidiuretic hormone; E87.2 Acidosis; E86.1 Hypovolemia; E86.0 Dehydration; E03.9 Hypothyroidism, unspecified; I95.89 Other hypotension; R50.9 Fever, unspecified; E05.90 Thyrotoxicosis, unspecified without thyrotoxic crisis or storm; Z79.811 Long term (current) use of aromatase inhibitors; Z79.890 Hormone replacement therapy; Z79.899 Other long term (current) drug therapy; Z82.49 Family history of ischemic heart disease and other diseases of the circulatory system; Z85.3 Personal history of malignant neoplasm of breast; Z90.13 Acquired absence of bilateral breasts and nipples; Z98.82 Breast implant status; Z88.0 Allergy status to penicillin; Z91.09 Other allergy status, other than to drugs and biological substances
CPT/HCPCS: 71045; 74177; 80048; 80053; 81001; 82533; 82570; 83605; 83735; 83930; 83935; 84145; 84156; 84295; 84300; 84443; 85025; 86140; 87040; 87086